=== PATIENT | male | born 1935 | race Caucasian/White ===

== ENCOUNTER 2016-08-10 11:48 | Emergency (ER) | payer MEDICARE, OTHER ==
[2016-08-10 12:04] VITALS: BP 138/59
--- NOTE | 2016-08-10 12:36 | UC ---
Skin Complaint HPI - HPI Summary HPI Summary: wound right forearm x 1 hr s/p fall on his right arm , + abrasion of the right forearm skin pealed off no arm pain - History of Current Complaint Chief Complaint: [facility] Time Seen by Provider: 08/10/16 12:08 Stated Complaint: RIGHT ARM LAC (FELL) Hx Obtained From: Patient Onset/Duration: Sudden Onset, Lasting Hours - 1, Still Present Timing: Constant Onset Severity: Moderate Current Severity: Moderate Location: Other - right forearm Aggravating: Touch Alleviating: Other - pressure Associated Signs & Symptoms: Positive: Bruising Related History: Trauma - s/p fall on his right forearm - Allergy/Home Medications Allergies/Adverse Reactions: Allergies Allergy/AdvReac Type Severity Reaction Status Date / Time No Known Allergies Allergy Verified 08/10/16 12:04 Home Medications: Home Medications Amlodipine Besylate [Norvasc 10 mg tab] 10 mg PO DAILY 08/10/16 [History Confirmed 08/10/16] Aspirin [Aspirin 81 MG TAB] 81 mg PO DAILY 08/10/16 [History Confirmed 08/10/16] Cyanocobalamin [Vitamin Deficiency Inject] 1,000 mcg IJ MONTHLY 08/10/16 [ History Confirmed 08/10/16] Ferrous Gluconate TAB* [Fergon TAB*] 325 mg PO TID 08/10/16 [History Confirmed 08/10/16] Loperamide HCl 2 mg PO PRN 08/10/16 [History] Losartan TAB* [Cozaar TAB*] 25 mg PO DAILY 08/10/16 [History Confirmed 08/10/16] Pravastatin Sodium [Pravachol] 40 mg PO DAILY 08/10/16 [History Confirmed ] Pyridostigmine [place] [Mestinon] 90 mg PO DAILY 08/10/16 [History Confirmed ] glipiZIDE TAB* [Glucotrol TAB*] 5 mg PO DAILY 08/10/16 [History Confirmed ] Review of Systems Constitutional: Negative Skin: Negative Eyes: Negative ENT: Negative All Other Systems Reviewed And Are Negative: Yes PMH/Surg Hx/FS Hx/Imm Hx Endocrine History: Diabetes Cardiovascular History: Hypertension - Surgical History Surgical History: Yes Surgery Procedure, Year, and Place: hernia x 2, tonsils - Family History Known Family History: Positive: Hypertension, Diabetes - Social History Alcohol Use: None Substance Use Type: None Smoking Status (MU): Never Smoked Tobacco Physical Exam Triage Information Reviewed: Yes Appearance: No Pain Distress, Ill-Appearing, Thin Vital Signs: Initial Vital Signs Pulse 58 08/10/16 11:54 Resp 16 08/10/16 11:54 BP 138/59 08/10/16 11:54 Pulse Ox 98 08/10/16 11:54 Vital Signs Reviewed: Yes Eyes: Positive: Conjunctiva Clear ENT: Positive: Normal ENT inspection, Hearing grossly normal, Pharynx normal Neck: Positive: Supple, Nontender, No Lymphadenopathy Respiratory: Positive: Chest non-tender, Lungs clear, Normal breath sounds Cardiovascular: Positive: RRR, No Murmur, Pulses Normal Abdominal Exam: Normal Skin: Positive: Other - large abrasion / skin avulsion right forearm , + bleeding , + mild tenderenss , the area was cleaned , pressure dressing was applied Course/Dx - Diagnoses Provider Diagnoses: abrastion right forearm Discharge - Discharge Plan Condition: Stable Disposition: HOME Patient Education Materials: Abrasion (ED) Referrals: Julito Lara MD [Primary Care Provider] - 3 Days
== END 2016-08-10 12:55 | disposition home or self-care (01) ==
LOC: UCCORT 11:48
DX: S50.811A Abrasion of right forearm, initial encounter (principal); I10 Essential (primary) hypertension; W19.XXXA Unspecified fall, initial encounter; Y92.9 Unspecified place or not applicable
CPT/HCPCS: 99202; G0463